=== PATIENT | male | born 1940 | race Caucasian/White ===

== ENCOUNTER 2019-09-02 07:07 | Day surgery (SDC) | payer MEDICARE, BC ==
[~2019-09-02] VITALS: Ht 172.7 cm; Wt 101.0 kg
[~2019-09-02 07:07] MED LIST: ALLO100T PO; AMLO2.5T2 PO; ASPI-1264 PO; ATOR10TA70 PO; CETI-102 PO; CLOT15CR73 TP; DEXL60CA3 PO; FENO145T38 PO; HYDR-3973 PO; HYDR25TA4 PO; LACTC PO; LEVO75TA PO; MELO-102 PO; MOME17SP; MULT-1141 PO; TERA2CAP4 PO; ZOLP5TAB2 PO
[2019-09-02 07:30] VITALS: BP 138/74
[2019-09-02] MEDS ORDERED: ASPI81TA52 PO (07:47)
[2019-09-02] MEDS ORDERED: METO-467 PO (07:47)
[2019-09-02 09:22] VITALS: BP 128/77
[2019-09-02 09:30] VITALS: BP 127/58
[2019-09-02 09:40] VITALS: BP 126/54
== END 2019-09-02 09:55 | disposition home or self-care (01) ==
LOC: SSTAY O 07:07
PROVIDERS: ATTEND Radiology Vascular & Interventional Radiology
DX: J90 Pleural effusion, not elsewhere classified (principal); I25.10 Atherosclerotic heart disease of native coronary artery without angina pectoris; M19.90 Unspecified osteoarthritis, unspecified site; E78.5 Hyperlipidemia, unspecified; E03.9 Hypothyroidism, unspecified; I10 Essential (primary) hypertension; Z79.82 Long term (current) use of aspirin; Z79.899 Other long term (current) drug therapy; Z95.1 Presence of aortocoronary bypass graft; Z98.890 Other specified postprocedural states; Z88.5 Allergy status to narcotic agent; Z87.891 Personal history of nicotine dependence
CPT/HCPCS: 32555; 71045; C1729; 88108; 88305; 88313

== ENCOUNTER 2019-09-12 07:35 | Day surgery (SDC) | payer MEDICARE, BC ==
[~2019-09-12] VITALS: Ht 172.7 cm; Wt 98.2 kg
[~2019-09-12 07:35] MED LIST changes: -ASPI-1264 PO; +ASPI81TA52 PO; -CLOT15CR73 TP; -LACTC PO; +METO-467 PO
[2019-09-12 08:25] VITALS: BP 136/67
[2019-09-12 08:42] VITALS: BP 122/70
[2019-09-12 08:45] VITALS: BP 139/68
[2019-09-12 08:50] VITALS: BP 131/64
[2019-09-12 08:55] VITALS: BP 113/60
== END 2019-09-12 09:22 | disposition home or self-care (01) ==
LOC: SSTAY O 07:35
PROVIDERS: ATTEND Radiology Diagnostic Radiology
DX: J90 Pleural effusion, not elsewhere classified (principal); I25.10 Atherosclerotic heart disease of native coronary artery without angina pectoris; M19.90 Unspecified osteoarthritis, unspecified site; E78.5 Hyperlipidemia, unspecified; E03.9 Hypothyroidism, unspecified; E11.22 Type 2 diabetes mellitus with diabetic chronic kidney disease; I12.9 Hypertensive chronic kidney disease with stage 1 through stage 4 chronic kidney disease, or unspecified chronic kidney disease; N18.3 Chronic kidney disease, stage 3 (moderate); Z98.890 Other specified postprocedural states; Z95.1 Presence of aortocoronary bypass graft; Z95.5 Presence of coronary angioplasty implant and graft; Z79.899 Other long term (current) drug therapy; Z79.82 Long term (current) use of aspirin
CPT/HCPCS: 32555; 71045; C1729

== ENCOUNTER → 2019-09-30 | Day surgery (SDC) | payer MEDICARE, BC ==
[~2019-09-30] VITALS: Ht 172.7 cm; Wt 99.2 kg
[~2019-09-30] MED LIST changes: -CETI-102 PO; +CETI-90 PO
[2019-09-30 08:55] VITALS: BP 130/72
[2019-09-30 09:25] VITALS: BP 113/61
[2019-09-30 09:30] VITALS: BP 125/63
[2019-09-30 10:05] LABS: PLEURAL FLUID PH 7.411 (7.63-7.65)
[2019-09-30 10:06] LABS: BFSOURCE PLEURAL FLD
[2019-09-30 10:35] LABS: LDH,BODY FLUID 97 U/L; TOTAL PROTEIN,BODY FLUID 4.1 G/DL
[2019-09-30 10:50] LABS: BFAPPEAR HAZY
[2019-09-30 10:51] LABS: BF RBC COUNT 925 /CU MM; BF WBC COUNT 1205 /CU MM (0-1000); BFCOLOR YELLOW; BFVOLUME 55 ML; EOSINOPHILS,BODY FLUID 2 %; LYMPHOCYTES,BODY FLUID 86 %; MONOCYTES,BODY FLUID 10 %; NEUTROPHILS,BODY FLUID 2 %
[2019-09-30 10:52] LABS: BF MESOTHELIAL CELLS FEW
== END | disposition home or self-care (01) ==
LOC: SSTAY O 08:38
PROVIDERS: ATTEND Radiology Diagnostic Radiology
DX: J90 Pleural effusion, not elsewhere classified (principal); I25.10 Atherosclerotic heart disease of native coronary artery without angina pectoris; M19.90 Unspecified osteoarthritis, unspecified site; E78.5 Hyperlipidemia, unspecified; E03.9 Hypothyroidism, unspecified; I10 Essential (primary) hypertension; Z98.890 Other specified postprocedural states; Z95.1 Presence of aortocoronary bypass graft; Z79.899 Other long term (current) drug therapy
CPT/HCPCS: 32555; 71045; 83615; 83986; 84157; 87070; 89051; C1729

== ENCOUNTER 2019-10-29 06:49 | Day surgery (SDC) | payer MEDICARE, BC ==
[~2019-10-29] VITALS: Ht 167.6 cm; Wt 100.3 kg
[2019-10-29] MEDS ORDERED: POTA20TA19 (07:10)
[2019-10-29] MEDS ORDERED: IPRA3AMP31 (07:10)
[2019-10-29] MEDS ORDERED: FURO40TA4 (07:10)
[2019-10-29 07:27] VITALS: BP 144/67
[2019-10-29 08:50] VITALS: BP 118/64
[2019-10-29 09:00] VITALS: BP 134/71
[2019-10-29 09:15] VITALS: BP 121/65
--- NOTE | 2019-10-29 09:20 | NUR ---
Pt tolerated procedure well, chest Xray reviewed by Wendy YARBROUGH. Pt to be discharged to home.
== END 2019-10-29 09:15 | disposition home or self-care (01) ==
LOC: SSTAY O 06:49
PROVIDERS: ATTEND Radiology Vascular & Interventional Radiology
DX: J90 Pleural effusion, not elsewhere classified (principal); I25.10 Atherosclerotic heart disease of native coronary artery without angina pectoris; M19.90 Unspecified osteoarthritis, unspecified site; E78.5 Hyperlipidemia, unspecified; E03.9 Hypothyroidism, unspecified; I10 Essential (primary) hypertension; Z98.890 Other specified postprocedural states; Z95.1 Presence of aortocoronary bypass graft; Z79.899 Other long term (current) drug therapy; Z79.82 Long term (current) use of aspirin
CPT/HCPCS: 32555; 71045; C1729; J2001

== ENCOUNTER → 2020-02-14 | Outpatient (CLI) | payer MEDICARE, BC ==
[~2020-02-14] MED LIST changes: +CETI-194 PO; -CETI-90 PO; +IPRA3AMP31; +LACT1CAP65 PO; +tamsulosin capsule PO
== END | disposition home or self-care (01) ==
LOC: RAD 10:24
PROVIDERS: ATTEND Thoracic Surgery (Cardiothoracic Vascular Surgery)
DX: J98.11 Atelectasis (principal); I51.7 Cardiomegaly
CPT/HCPCS: 71046

== ENCOUNTER 2020-06-10 12:33 | Outpatient (CLI) | payer MEDICARE, BC ==
[~2020-06-10] VITALS: Ht 172.7 cm; Wt 101.2 kg
[2020-06-10 13:01] LABS: TOTAL HEMOGLOBIN 11.9 G/dl (14.0-18.0)
[2020-06-10] MEDS ORDERED: albuterol 2.5 MG/3 ML nebule NEB ONE (13:15)
== END 2020-06-10 23:59 | disposition home or self-care (01) ==
LOC: RT 12:33
PROVIDERS: ATTEND Internal Medicine Pulmonary Disease
DX: J45.991 Cough variant asthma (principal)
CPT/HCPCS: 85018; 94060; 94727; 94729; 94760